=== PATIENT | female | born 1990 | race Caucasian/White ===

== ENCOUNTER → 2019-08-16 | Outpatient (REF) | payer MEDICAID ==
[2019-08-16 17:40] LABS: HEMATOCRIT 38.5 % (36.0-47.0); HEMOGLOBIN 12.7 g/dl (12.0-15.5); MEAN CORPUSCULAR HEMOGLOBIN 30.6 pg (27.0-33.0); MEAN CORPUSCULAR VOLUME 92.8 fl (80.0-96.0); PLATELET COUNT, AUTOMATED 273 10^3/uL (150-450); RED BLOOD COUNT 4.15 10^6/uL (4.00-5.40); WHITE BLOOD COUNT 9.1 10^3/uL (4.0-10.0)
[2019-08-16 21:08] LABS: CHLAMYDIA DNA AMPLIFICATION NEGATIVE (NEGATIVE); GC DNA AMPLIFICATION NEGATIVE (NEGATIVE)
[2019-08-17 10:31] LABS: HEPATITIS B SURFACE ANTIGEN NEGATIVE (NEGATIVE); HEPATITIS C VIRUS ABY INDEX < 0.0 INDEX (<0.8); HIV 1&2 SCREEN CENTAUR NEGATIVE (NEGATIVE); RUBELLA IgG QUALITATIVE IMMUNE (IMMUNE)
== END ==
LOC: M PLALAB 12:51
PROVIDERS: ATTEND Advanced Practice Midwife
DX: Z34.01 Encounter for supervision of normal first pregnancy, first trimester (principal)

== ENCOUNTER → 2019-10-13 | Outpatient (CLI) | payer MEDICAID ==
--- NOTE | 2019-10-13 11:08 | REP ---
OB ULTRASOUND: Real-time sonographic evaluation of the gravid uterus performed. Transabdominal and endovaginal technique is utilized. There is a single living intrauterine gestation. The estimated gestational age is 18 weeks, EDC 03/15/2020. Today's measurements indicate appropriate growth. Biometry and Growth: BPD 39 mm = 17 weeks 5 days, 41st percentile HC 145 mm = 17 weeks 5 days, 39th percentile AC 125 mm = 18 weeks 1 day, 52nd percentile FL 24 mm = 17 weeks 2 days, 27th percentile HC/AC ratio 1.16 within normal range of 1.07 to 1.26. Estimated weight 207 grams, 36th percentile. SEEN/GROSSLY UNREMARKABLE Lateral ventricles Yes Posterior fossa Yes Upper lip Yes Four-chamber heart Yes LVOT Yes RVOT Yes Stomach Yes Cord insertion Yes Three vessel cord Yes Kidneys Yes Bladder Yes Spine Yes Cervical length: Closed and measures 3.6 cm in length. heart rate: 143 beats per minute. position: Transverse with head toward the maternal right side. Placenta: Anterior and low lying, grade 1 with no previa or abruption. Tip of the placenta is 1.1 cm from the internal cervical os. Amniotic fluid: Within normal limits.
== END ==
LOC: M WHC 08:37
PROVIDERS: ATTEND Advanced Practice Midwife
DX: Z34.02 Encounter for supervision of normal first pregnancy, second trimester (principal)

== ENCOUNTER → 2020-01-17 | Outpatient (CLI) | payer MEDICAID ==
--- NOTE | 2020-03-08 08:56 | REP ---
LIMITED OBSTETRIC SONOGRAPHY HISTORY: Low lying placenta. Estimated date of delivery (ANNITA) 03/15/2020. Supervision of . FINDINGS: Limited obstetric sonography demonstrates a single living intrauterine gestation in a cephalic lie. A grade 2 anterior placenta is seen without evidence of previa or abruption. On transvaginal imaging closed cervical length is 2.7 cm. The placenta is not seen within 2 cm of the internal cervical os. heart rate is recorded at 132 beats per minute. Amniotic fluid is subjectively normal. EVER is normal at 14.2 cm. Umbilical cord appears to be around the neck at this juncture. MTDD
== END ==
LOC: M WHC 17:44
PROVIDERS: ATTEND Advanced Practice Midwife
DX: O44.43 Low lying placenta NOS or without hemorrhage, third trimester (principal)

== ENCOUNTER → 2020-02-14 | Outpatient (REF) | payer MEDICAID | LOC: M LAB REF 17:56 | PROVIDERS: ATTEND Advanced Practice Midwife | DX: Z34.03 Encounter for supervision of normal first pregnancy, third trimester (principal) ==

== ENCOUNTER → 2020-03-07 | Outpatient (CLI) | payer MEDICAID ==
--- NOTE | 2020-03-15 09:24 | REP ---
OB ULTRASOUND HISTORY: Uterine size discrepancy small for dates. TECHNIQUE: Real-time sonographic evaluation of gravid uterus is performed. Transabdominal technique is utilized. FINDINGS: There is a single living intrauterine . The estimated gestational age is reportedly 38 weeks 6 days, estimated date of confinement (EDC) 03/15/2020. Todays measurements indicate appropriate growth. BIOMETRIC MEASUREMENTS: BPD 91 mm 37 weeks 0 days 23rd percentile HC 327 mm 37 weeks 1 day 20th percentile AC 342 mm 38 weeks 1 day 38th percentile FL 67 mm 34 weeks 2 days Less than 5th percentile HC/AC ratio 0.96 Within Normal range 0.90-1.09 Estimated weight 3081 grams 44th percentile position cephalic. Placenta anterior and grade 2. There is no evidence of previa or abruption. Three-vessel cord is noted. heart rate is 125 beats per minute. Amniotic fluid within normal limits. Amniotic fluid index (EVER) 16.5 within normal range of 7.2-22.7. Cervical length is 3.0 cm. MTDD
== END ==
LOC: M WHC 10:15
PROVIDERS: ATTEND Obstetrics & Gynecology
DX: Z34.83 Encounter for supervision of other normal pregnancy, third trimester (principal); Z3A.38 38 weeks gestation of pregnancy

== ENCOUNTER → 2020-03-22 | Outpatient (REF) | payer MEDICAID | LOC: M PLALAB 13:11 | PROVIDERS: ATTEND Obstetrics & Gynecology | DX: Z34.91 Encounter for supervision of normal pregnancy, unspecified, first trimester (principal) ==

== ENCOUNTER 2020-03-25 23:37 | Inpatient (IN) | payer MEDICAID, SELFPAY ==
[~2020-03-25] VITALS: Ht 154.9 cm; Wt 70.0 kg
[2020-03-25 23:55] VITALS: BP 156/93
[2020-03-26] VITALS (53 sets, daily range): BP systolic 87–145; BP diastolic 50–80
[2020-03-26 00:42] LABS: HEMATOCRIT 38.2 % (36.0-47.0); HEMOGLOBIN 12.3 g/dl (12.0-15.5); MEAN CORPUSCULAR HEMOGLOBIN 28.6 pg (27.0-33.0); MEAN CORPUSCULAR HGB CONC 32.2 g/dl (32.0-36.5); MEAN CORPUSCULAR VOLUME 88.8 fl (80.0-96.0); PLATELET COUNT, AUTOMATED 266 10^3/uL (150-450); WHITE BLOOD COUNT 15.4 10^3/uL (4.0-10.0)
[2020-03-26] MEDS: ONDANSETRON 4MG/2ML VIAL IV SCH ×5 (00:43→19:04)
[2020-03-26] MEDS ORDERED: PROMETHAZINE INJ 25 MG/ML VIAL (J2550) IV ONE (00:45)
[2020-03-26] MEDS ORDERED: BUTORPHANOL 2 MG/ML INJ (J0595) IV ONE (00:45)
--- NOTE | 2020-03-26 00:46 | HPEPDOC ---
Obstetrical History & Physical General Date of Admission Mar 26, 2020 at 00:15 History of Present Illness 30 yo G1 female at 41 4/7 weeks gestation by LMP c/w 9 week ultrasound (EDC=03/15) presents with regular contractions for the past several hours. The contractions increased in intensity. Chief Complaint: Contractions, term Information Provided By: Patient Age: 30 : 1 Term: 0 Care Care: Good Care Dating Final EDC: Mar 15, 2020 Final EDC by: LMP, 1st trimester (US) LMP: Jun 09, 2019 Past Medical History Past Obstetrical History : Past Obstetrical History: Primgravida Past Medical History Surgical History: Denies/None Family History Significant Family History: No pertinent family hx Social History Marital Status: Family situation: Spouse/partner home Psychosocial History: No pertinent psych hx * Smoker: non-smoker Alcohol: Denies Drugs: denies Abuse Violence Screening Have you been hit/kicked/slapp: No Have you been sexually assault: No Allergies Coded Allergies: Dust (Verified Allergy, Unknown, 03/26/20) lactose (Verified Allergy, Unknown, 03/26/20) Physical Examination Physical Examination GENERAL: Alert and oriented times three. BREAST: . ABDOMEN: Gravid and non-tender to touch. FETUS: Is vertex (VTX) by sterile vaginal examination (SVE), fetus is vertex (VTX) by Roby. HEART RATE: Regular rate and rhythm. LUNGS: Clear to auscultation (CTA). EXTREMITIES: No edema. No clonus. Deep tendon reflexes (DTRs) + . Laboratory Data 24H LABS Laboratory Tests 2 03/25/20 23:52: Serology Scanned Report Hepatitis B Testing 03/26/20 00:30: CBC/BMP Pertinent Laboratoy Data Blood Type: O+ RBC Antibody Screen: Negative HIV: Negative Hepatitis B: Negative Hepatitis C: Negative Rapid Plasma Reagin: Immune Rubella: Nonreactive Chlamydia/Gonorrhea: Negative Group B Streptococcus: Negative Vaginal Examination Dilation: 3 cm Effacement: 70% Station: -2 Cervical Position: Posterior Presentation: Cephalic presentation Assessment Variability: Moderate Accelerations: Positive Decelerations: None Tocometer Contractions: Yes Frequency: regular, every 1-5 min. Duration: greater than 60 seconds Strength: palpated as moderate Assessment/Plan Assessment Pt is a 30-year-old (G)1 para (P)0 at 41+4 weeks by LMP c/w 9-week ultrasound presents to Labor and Delivery (L&D) in labor. Plan Admit and orient. Lacemaker and consent. Group B Streptococcus (GBS) negative Labs and intravenous (IV) per unit protocol. Counseled on Pitocin and induction of labor (IOL). Lactated Ringers (LR): Bolus mL, then at mL/hr. Anticipate [normal spontaneous delivery ()]. C-S as appropriate. DAVID MONZON MD Mar 26, 2020 00:45
[2020-03-26] MEDS ORDERED: LR 1,000 ML IV ONE (02:45)
[2020-03-26] MEDS ORDERED: FENTANYL 2MCG/ML ROPIVACAINE 0.2% IN 0.9% NACL 100ML IVBAG As Ordered ONE (08:28)
[2020-03-26] MEDS ORDERED: OXYTOCIN DRIP 30 UNITS in IV 1 EA IV SCH ×2 (08:45→19:06)
[2020-03-26] MEDS: LR 1,000 ML IV SCH ×3 (09:08→18:45)
--- NOTE | 2020-03-26 09:36 | IPNPDOC ---
Obstetrical Progress Note Date of Service Mar 26, 2020 Subjective Patient desires an epidural. Objective Vital Signs Date Time Temp Pulse Resp B/P (MAP) Pulse Ox O2 Delivery O2 Flow Rate FiO2 03/26/20 07:20 99.0 101 16 118/62 (80) 03/26/20 07:03 Room Air Assessment Heart Rate (FHR): 110 Variability: Moderate Accelerations: Positive Decelerations: None Heart Rate Tracing: Category I Tocometer Contractions: Yes Frequency: irregular Sterile Vaginal Examination Dilation: 4 cm Effacement (%): 90% Station: -1 Cervical Consistency: Soft Cervical Position: Anterior Postion/Presentation: Cephalic presentation Assessment and Plan Age: 30 : 1 Term: 0 Pre-term: 0 Abortions: 0 Livin EGA at Admission: 41.4 Status: Reassuring Group B Streptococcus: Negative Anticipate: Vaginal Delivery Additional Comments Patient having minimal contractions. Reviewed options to go home due to minimal cervical change or to augment her labor. She desires an unmedicated labor without augmentation. Patient reports she just wants to have this baby and wants an epidural so she can sleep. She accepts augmentation. IV Pitocin ordered. HYUN MARINO CNM Mar 26, 2020 09:36
[2020-03-26] MEDS ORDERED: ONDANSETRON 4MG/2ML VIAL IV PRN (10:45)
[2020-03-26] MEDS ORDERED: EPIDURAL/PCA KEYS XX PRN (10:45)
[2020-03-26] MEDS ORDERED: NALOXONE INJ 0.4MG/1ML VIAL (J2310 PER 1MG) IV PRN (10:45)
[2020-03-26] MEDS ORDERED: EPIDURAL COMMENT XX SCH (10:45)
[2020-03-26] MEDS ORDERED: ePHEDrine SULFATE 25 MG/5 ML(5MG/ML) SYRINGE IV PRN (10:45)
[2020-03-26] MEDS ORDERED: REFRIGERATOR IV KEYS XX PRN (10:45)
[2020-03-26] MEDS ORDERED: LACTATED RINGER'S 1000 ML IV PRN (10:45)
[2020-03-26] MEDS ORDERED: diphenhydrAMINE 50MG/ML VIAL (J1200) IV PRN (10:45)
[2020-03-26] MEDS ORDERED: FENTANYL/ROPIVACAINE/NACL BAG 100 ML EPIDURAL SCH (10:45)
--- NOTE | 2020-03-26 12:50 | IPNPDOC ---
Obstetrical Progress Note Date of Service Mar 26, 2020 Subjective Patient is comfortable with her epidural. Objective Vital Signs Date Time Temp Pulse Resp B/P (MAP) Pulse Ox O2 Delivery O2 Flow Rate FiO2 03/26/20 11:30 113 99/51 (67) 03/26/20 10:04 98.8 16 03/26/20 07:03 Room Air Assessment Heart Rate (FHR): 125 Variability: Moderate Accelerations: Positive Decelerations: None Heart Rate Tracing: Category I Tocometer Contractions: Yes Frequency: irregular Sterile Vaginal Examination Dilation: 5 cm (5 to 6 cm) Effacement (%): 100% Station: -1 Postion/Presentation: Cephalic presentation Assessment and Plan Status: Reassuring Anticipate: Vaginal Delivery Additional Comments Questionable SROM. IV Pitocin was stopped one hour ago due to a 4 minute decele ration that recovered. Lots of bloody show noted. IV Pitocin restarted as contractions are every 4 to 8 minutes. HYUN MARINO CNM Mar 26, 2020 12:50
[2020-03-26] MEDS ORDERED: DIBUCAINE 1% OINTMENT 30GM TOP PRN (19:15)
[2020-03-26] MEDS ORDERED: RHOGAM 300 MCG (1500 IU) INJ (J2790) IM SCH (19:15)
[2020-03-26] MEDS ORDERED: ACETAMINOPHEN 500 MG TAB PO PRN (19:15)
[2020-03-26] MEDS ORDERED: ANUSOL HC CREAM 30GM TOP PRN (19:15)
[2020-03-26] MEDS ORDERED: ACETAMINOPHEN TAB 650MG DOSE (2X325MG) PO PRN (19:15)
[2020-03-26] MEDS ORDERED: DOCUSATE SODIUM 100 MG CAP PO PRN (19:15)
[2020-03-26] MEDS ORDERED: METHYLERGONOVINE MALEATE 0.2 MG TAB PO PRN (19:15)
[2020-03-26] MEDS ORDERED: MEASLES,MUMPS,RUBELLA VACCINE INJ (MMR-II) (90707) SC SCH (19:15)
[2020-03-26] MEDS: IBUPROFEN 800 MG TAB PO PRN (19:20)
--- NOTE | 2020-03-26 20:32 | DNPDOC ---
[facility] Delivery Note Delivery Note DATE OF DELIVERY: 03/26/20 at 1830 PREDELIVERY DIAGNOSIS: 41-4/7 weeks' gestation and labor. POST DELIVERY DIAGNOSIS: Delivered. PROCEDURE: Spontaneous vaginal delivery. TAX ASSISTANT: Hyun Kasper CNM, CARMEN ANESTHESIA: epidural ESTIMATED BLOOD LOSS: 350 mL. FINDINGS: 6 pounds 13 ounces; 3100 grams; male , Score 8/9, nuchal cord times 3; meconium fluid. DELIVERY SUMMARY: Yissel is a 30-year-old female who is now a who presented to L&D in latent labor. Her labor was augmented with IV Pitocin after 8 hours of minimal cervical change. She requested an epidural for pain management. The patient progressed to fully dilated at 1715. She was artificially ruptured to a small amount of meconium fluid and pushed to a living male in the KARI position with restitution to ROT. A nuchal cord x3 was noted and reduced prior to the shoulder being delivered. The anterior shoulder delivered with ease and the corpus immediately followed. The baby was placed on the maternal abdomen active and crying with stimulation. The cord was clamped after pulsation ceased and cut by the father of the baby. A 3-vessel cord was noted. The placenta delivered at 1834 spontaneously and intact. Uterine hemostasis was achieved via rapid infusion of IV Pitocin and fundal massage. The vagina, cervix, and perineum were inspected and found to have a first degree perineal laceration that was repaired with a 3.[address]-1. Mom plans to breast feed her . They are undecided on his name. Both mom and baby are in stable condition. All counts of instruments and sponges are correct. HYUN KASPER CNM Mar 26, 2020 20:32
[2020-03-26] MEDS ORDERED: CARBOPROST TROMETHAMINE 250 MCG/ML AMP As Ordered ONE (23:40)
[2020-03-27] MEDS ORDERED: OXYTOCIN INJ 10 UNITS/ML VIAL (J2590) IV STA (00:01)
[2020-03-27] MEDS ORDERED: METHYLERGONOVINE MALEATE 0.2 MG/ML VIAL (J2210) IM ONE (00:15)
[2020-03-27] MEDS ORDERED: AMPICILLIN SOD/SULBACTAM SOD 3 GM in D5W MINI-BAG PLUS 100 ML IV ONE (00:15)
[2020-03-27] MEDS ORDERED: PERCOCET 5MG/325MG TAB PO ONE (00:15)
[2020-03-27] MEDS ORDERED: CARBOPROST TROMETHAMINE 250 MCG/ML AMP IM ONE (00:15)
[2020-03-27] MEDS ORDERED: LOPERAMIDE 2 MG CAPLET PO PRN (00:15)
[2020-03-27] MEDS: LOPERAMIDE 2 MG CAPLET PO ONE ×2 (00:26→00:30)
[2020-03-27] MEDS ORDERED: UNASYN 3 GM VIAL As Ordered ONE (00:26)
[2020-03-27 00:28] VITALS: BP 119/77
[2020-03-27] MEDS ORDERED: OXYTOCIN DRIP 30 UNITS in IV 1 EA IV SCH (00:30)
[2020-03-27 06:02] VITALS: BP 105/57
[2020-03-27 06:05] LABS: HEMATOCRIT 26.8 % (36.0-47.0); HEMOGLOBIN 8.7 g/dl (12.0-15.5); MEAN CORPUSCULAR HEMOGLOBIN 29.2 pg (27.0-33.0); MEAN CORPUSCULAR HGB CONC 32.5 g/dl (32.0-36.5); MEAN CORPUSCULAR VOLUME 89.9 fl (80.0-96.0); PLATELET COUNT, AUTOMATED 191 10^3/uL (150-450); RED BLOOD COUNT 2.98 10^6/uL (4.00-5.40); WHITE BLOOD COUNT 18.1 10^3/uL (4.0-10.0)
[2020-03-27] MEDS: FERROUS GLUCONATE 324 MG TAB PO SCH ×2 (08:32→21:44)
[2020-03-27] MEDS: IBUPROFEN 600MG TAB PO PRN (08:32)
[2020-03-27] MEDS: PRENATAL VITAMINS CHEWABLE TABLET PO SCH (08:32)
--- NOTE | 2020-03-27 12:05 | IPNPDOC ---
Progress Note Date of Service: Mar 27, 2020 Day#: 1 Progress Note SUBJECT: Yissel is now a who had an uncomplicated vaginal delivery with a 1st degree vaginal repair. Last night she had a hemorrhage related to uterine atony from a full bladder. She received Methergine, Hemabate and IV Pitocin. She has been ambulating, voiding spontaneously without issue and tolerating regular diet. Breast feeding without issue. She denies any dizziness currently or when ambulating. OBJECTIVE: VITAL SIGNS: Within normal limits, afebrile. Alert and oriented times three. Breath sounds clear to auscultation. Heart rate: Regular rate Abdomen: Fundus firm at U-2. Soft, NTTP. Minimal lochia. ASSESSMENT: Day 1 , post hemorrhage 1,000 cc PLAN: 1.Continue supportive nursing care. 2. Continue with iron supplements and pain management. 3. Anticipate discharge tomorrow if patient continues to do well. VS, I&O, 24H, Fishbone Vital Signs/I&O Vital Signs Date Time Temp Pulse Resp B/P (MAP) Pulse Ox O2 Delivery O2 Flow Rate FiO2 03/27/20 06:02 98.5 79 18 105/57 (73) 03/27/20 00:28 97 03/26/20 07:03 Room Air I&O- Last 24 Hours up to 6 AM 03/27/20 06:00 Intake Total 5018 ml Output Total 3700 ml Balance 1318 ml Laboratory Data 24H LABS Laboratory Tests 2 03/27/20 05:52: Nucleated Red Blood Cells % (auto) 0.0 CBC/BMP Laboratory Tests 03/27/20 05:52 Item Value Date Time White Blood Count 15.4 10^3/uL H 03/26/20 0030 Red Blood Count 4.30 10^6/uL 03/26/20 0030 Hemoglobin 12.3 g/dl 03/26/20 0030 Hematocrit 38.2 % 03/26/20 0030 Mean Corpuscular Volume 88.8 fl 03/26/20 0030 Mean Corpuscular Hemoglobin 28.6 pg 03/26/20 0030 Mean Corpuscular Hemoglobin Concent 32.2 g/dl 03/26/20 0030 Red Cell Distribution Width 13.7 % 03/26/20 003 Platelet Count 266 10^3/uL 03/26/20 0030 Item Value Date Time White Blood Count 18.1 10^3/uL H 03/27/20 0552 Red Blood Count 2.98 10^6/uL L 03/27/2052 Hemoglobin 8.7 g/dl L # 03/27/2052 Hematocrit 26.8 % L 03/27/2052 Mean Corpuscular Volume 89.9 fl 03/27/2052 Mean Corpuscular Hemoglobin 29.2 pg 03/27/20551 Mean Corpuscular Hemoglobin Concent 32.5 g/dl 03/27/2052 Red Cell Distribution Width 13.9 % 03/27/2052 Platelet Count 191 10^3/uL 03/27/20 0552 HYUN MARINO CNM Mar 27, 2020 12:05
[2020-03-27] MEDS: IBUPROFEN 800 MG TAB PO PRN (15:51)
[2020-03-27 18:08] VITALS: BP 101/52
[2020-03-28 06:00] VITALS: BP 108/61
[2020-03-28] MEDS: IBUPROFEN 600MG TAB PO PRN (08:13)
[2020-03-28] MEDS: PRENATAL VITAMINS CHEWABLE TABLET PO SCH (08:13)
[2020-03-28] MEDS: FERROUS GLUCONATE 324 MG TAB PO SCH (08:13)
== END 2020-03-28 12:05 | disposition home or self-care (01) | DRG 560 ==
LOC: M LDO 23:37 → M LDI 03-26 00:15 → M OBS 03-26 21:30
PROVIDERS: ADMIT Specialist; ATTEND Specialist
PROC: 10E0XZZ Delivery of Products of Conception, External Approach (ICD-10-PCS; principal; 2020-03-26)
PROC: 0HQ9XZZ Repair Perineum Skin, External Approach (ICD-10-PCS; 2020-03-26)
PROC: 10907ZC Drainage of Amniotic Fluid, Therapeutic from Products of Conception, Via Natural or Artificial Opening (ICD-10-PCS; 2020-03-26)
DX: O48.0 Post-term pregnancy (principal); O77.0 Labor and delivery complicated by meconium in amniotic fluid; Z37.0 Single live birth; Z3A.41 41 weeks gestation of pregnancy; O69.81X0 Labor and delivery complicated by cord around neck, without compression, not applicable or unspecified; O70.0 First degree perineal laceration during delivery

== ENCOUNTER → 2020-07-11 | Outpatient (CLI) | payer MEDICAID | LOC: M PLALAB 10:32 | PROVIDERS: ATTEND Advanced Practice Midwife | DX: Z12.4 Encounter for screening for malignant neoplasm of cervix (principal) ==

== ENCOUNTER → 2021-04-09 | Outpatient (CLI) | payer BC ==
[2021-04-09 13:43] LABS: BASO % 0.4 % (0.0-1.0); EOS % 0.4 % (0.0-3.0); HEMATOCRIT 40.9 % (36.0-47.0); HEMOGLOBIN 13.4 g/dl (12.0-15.5); LYMPH # 1.9 10^3/uL (1.5-5.0); LYMPH % 24.1 % (24.0-44.0); MEAN CORPUSCULAR HEMOGLOBIN 30.3 pg (27.0-33.0); MEAN CORPUSCULAR HGB CONC 32.8 g/dl (32.0-36.5); MEAN CORPUSCULAR VOLUME 92.5 fl (80.0-96.0); MONO # 0.5 10^3/uL (0.0-0.8); MONO % 6.1 % (2.0-8.0); NEUTROPHILS # 5.5 10^3/uL (1.5-8.5); NEUTROPHILS % 68.6 % (36.0-66.0); PLATELET COUNT, AUTOMATED 246 10^3/uL (150-450); RED BLOOD COUNT 4.42 10^6/uL (4.00-5.40); WHITE BLOOD COUNT 8.1 10^3/uL (4.0-10.0)
[2021-04-09 15:11] LABS: GC DNA AMPLIFICATION NEGATIVE (NEGATIVE)
[2021-04-09 15:51] LABS: HEPATITIS C VIRUS ABY INDEX < 0.0 INDEX (<0.8); HIV 1&2 SCREEN CENTAUR NEGATIVE (NEGATIVE)
== END ==
LOC: M PLALAB 09:06
PROVIDERS: ATTEND Advanced Practice Midwife
DX: Z34.81 Encounter for supervision of other normal pregnancy, first trimester (principal)

== ENCOUNTER → 2021-06-03 | Outpatient (CLI) | payer BC ==
[~2021-06-03] MED LIST: DOXY1TAB59
== END ==
LOC: M WHC 14:24
PROVIDERS: ATTEND Specialist
DX: Z34.82 Encounter for supervision of other normal pregnancy, second trimester (principal); Z3A.20 20 weeks gestation of pregnancy

== ENCOUNTER 2021-06-11 12:27 | Emergency (ER) | payer OTHER, BC ==
[~2021-06-11] VITALS: Ht 157.5 cm; Wt 68.2 kg
[2021-06-11] MEDS ORDERED: DOXY1TAB59 (12:55)
[2021-06-11 15:05] VITALS: BP 131/64
== END 2021-06-11 15:07 | disposition home or self-care (01) ==
LOC: M ED 12:27
DX: O26.892 Other specified pregnancy related conditions, second trimester (principal); R10.30 Lower abdominal pain, unspecified; V40.0XXA Car driver injured in collision with pedestrian or animal in nontraffic accident, initial encounter; Z91.048 Other nonmedicinal substance allergy status; Z91.011 Allergy to milk products; Z3A.21 21 weeks gestation of pregnancy; Y92.9 Unspecified place or not applicable; Y93.9 Activity, unspecified; Y99.9 Unspecified external cause status

== ENCOUNTER → 2021-06-18 | Outpatient (CLI) | payer BC ==
--- NOTE | 2021-06-18 21:16 | REP ---
INDICATION: F/U COMPARISON: 06/03/2021 TECHNIQUE: Transabdominal obstetrical ultrasound with color Doppler evaluation. FINDINGS: Examination demonstrates a single live intrauterine in breech presentation. motion is identified by technologist. Placenta is noted posterior and grade 1 and low lying measuring approximately 19 mm from the closed internal os. Amniotic fluid volume is normal. Cervix measures 4.1 cm in length and appears closed.. Selected gestational age: 22 weeks 2 days with ANNITA 10/20/2021. Gestational age by current measurements 22 weeks 3 days with ANNITA 10/19/2021. FHR equals 144 beats per minute. Estimated weight 527 grams (65thpercentile). Anatomical assessment demonstrates findings concerning for cleft lip and possible cleft palate. IMPRESSION: 1. Findings suspicious for cleft lip/cleft palate. 2. Posterior grade 1 low lying placenta 19 mm from the closed internal os. <Electronically signed by Fernie Farias > 06/18/21 [id number]
== END ==
LOC: M WHC 12:20
PROVIDERS: ATTEND Specialist
DX: Z34.82 Encounter for supervision of other normal pregnancy, second trimester (principal)

== ENCOUNTER → 2021-07-24 | Outpatient (CLI) | payer BC ==
[2021-07-24 15:51] LABS: HEMATOCRIT 36.4 % (36.0-47.0); HEMOGLOBIN 11.7 g/dl (12.0-15.5); MEAN CORPUSCULAR HEMOGLOBIN 30.7 pg (27.0-33.0); MEAN CORPUSCULAR HGB CONC 32.1 g/dl (32.0-36.5); MEAN CORPUSCULAR VOLUME 95.5 fl (80.0-96.0); PLATELET COUNT, AUTOMATED 282 10^3/uL (150-450); RED BLOOD COUNT 3.81 10^6/uL (4.00-5.40); WHITE BLOOD COUNT 10.7 10^3/uL (4.0-10.0)
== END ==
LOC: M PLALAB 11:21
PROVIDERS: ATTEND Advanced Practice Midwife
DX: O44.42 Low lying placenta NOS or without hemorrhage, second trimester (principal)

== ENCOUNTER 2021-09-12 15:24 | Emergency (ER) | payer BC ==
[~2021-09-12] VITALS: Ht 154.9 cm; Wt 75.4 kg
[2021-09-12 15:25] VITALS: BP 127/73
[2021-09-12] MEDS ORDERED: ROBI1CAP PO (16:40)
[2021-09-12 19:22] LABS: BASO % 0.3 % (0.0-1.0); EOS # 0.2 10^3/uL (0.0-0.5); EOS % 1.9 % (0.0-3.0); HEMATOCRIT 35.3 % (36.0-47.0); HEMOGLOBIN 11.5 g/dl (12.0-15.5); LYMPH # 2.2 10^3/uL (1.5-5.0); LYMPH % 19.7 % (24.0-44.0); MEAN CORPUSCULAR HEMOGLOBIN 29.3 pg (27.0-33.0); MEAN CORPUSCULAR HGB CONC 32.6 g/dl (32.0-36.5); MEAN CORPUSCULAR VOLUME 90.1 fl (80.0-96.0); MONO # 0.9 10^3/uL (0.0-0.8); MONO % 7.6 % (2.0-8.0); NEUTROPHILS # 7.7 10^3/uL (1.5-8.5); NEUTROPHILS % 69.1 % (36.0-66.0); PLATELET COUNT, AUTOMATED 255 10^3/uL (150-450); RED BLOOD COUNT 3.92 10^6/uL (4.00-5.40); WHITE BLOOD COUNT 11.2 10^3/uL (4.0-10.0)
[2021-09-12 19:40] LABS: ALBUMIN 2.8 GM/DL (3.2-5.2); ALT/SGPT 22 U/L (12-78); BILIRUBIN,DIRECT 0.1 MG/DL (0.0-0.2); BILIRUBIN,TOTAL 0.5 MG/DL (0.2-1.0); BLOOD UREA NITROGEN 6 MG/DL (7-18); CALCIUM LEVEL 8.9 MG/DL (8.5-10.1); CARBON DIOXIDE LEVEL 24 MEQ/L (21-32); CHLORIDE LEVEL 110 MEQ/L (98-107); CREATININE FOR GFR 0.47 MG/DL (0.55-1.30); FERRITIN 6 NG/ML (8-252); GLOMERULAR FILTRATION RATE > 60.0 (>60); GLUCOSE, FASTING 82 MG/DL (70-100); POTASSIUM SERUM 3.7 MEQ/L (3.5-5.1); SODIUM LEVEL 142 MEQ/L (136-145); TOTAL PROTEIN 6.3 GM/DL (6.4-8.2)
[2021-09-12] MEDS ORDERED: diphenhydrAMINE 50MG/ML VIAL (J1200) IV PRN (20:20)
[2021-09-12] MEDS ORDERED: ALBUTEROL 90 MCG/ACT 8GM HFA INHALER INH PRN (20:20)
[2021-09-12] MEDS ORDERED: EPINEPHrine INJ 1 MG/ML 1ML AMP IM PRN (20:20)
[2021-09-12] MEDS ORDERED: ACETAMINOPHEN TAB 650MG DOSE (2X325MG) PO PRN (20:20)
[2021-09-12] MEDS ORDERED: ALBUTEROL SULFATE 2.5 MG/0.5 ML INH NEB SOLN INH PRN (20:20)
[2021-09-12] MEDS ORDERED: NS 1,000 ML IV SCH (21:00)
[2021-09-12] MEDS ORDERED: BEBTELOVIMAB 175MG 2ML VIAL (EUA) IV ONE (21:00)
== END 2021-09-12 22:02 | disposition home or self-care (01) ==
LOC: M ED 15:24
DX: O98.512 Other viral diseases complicating pregnancy, second trimester (principal); U07.1 COVID-19; Z3A.20 20 weeks gestation of pregnancy; Z91.011 Allergy to milk products

== ENCOUNTER → 2021-09-23 | Outpatient (CLI) | payer BC ==
[~2021-09-23] MED LIST changes: +ROBI1CAP PO
== END ==
LOC: M WHC 09:56
PROVIDERS: ATTEND Advanced Practice Midwife
DX: Z36.3 Encounter for antenatal screening for malformations (principal); O35.8XX0 Maternal care for other (suspected) fetal abnormality and damage, not applicable or unspecified; Z3A.36 36 weeks gestation of pregnancy

== ENCOUNTER → 2021-09-26 | Outpatient (REF) | payer BC | LOC: M SFHCWAGY 16:44 | PROVIDERS: ATTEND Obstetrics & Gynecology | DX: O35.8XX0 Maternal care for other (suspected) fetal abnormality and damage, not applicable or unspecified (principal) ==

== ENCOUNTER → 2021-10-09 | Outpatient (CLI) | payer BC ==
[~2021-10-09] MED LIST changes: +MULTTAB20 PO
== END ==
LOC: M LABSMTC 09:41
PROVIDERS: ATTEND Anesthesiology
DX: Z01.812 Encounter for preprocedural laboratory examination (principal); Z20.822 Contact with and (suspected) exposure to COVID-19

== ENCOUNTER 2021-10-14 07:10 | Inpatient (IN) | payer BC ==
[~2021-10-14] VITALS: Ht 154.9 cm; Wt 77.1 kg
[2021-10-14] VITALS (9 sets, daily range): BP systolic 101–128; BP diastolic 58–75
[2021-10-14] MEDS ORDERED: UNIS25TA3 PO (07:30)
[2021-10-14] MEDS ORDERED: ACET500P3 PO (07:30)
[2021-10-14] MEDS ORDERED: HOME MED LIST COMPLETE! XX SCH (07:35)
[2021-10-14] MEDS ORDERED: LACTATED RINGER'S 1000 ML IV STA (07:47)
[2021-10-14] MEDS ORDERED: ceFAZolin SOD 2 GM in IV 1 EA IV ONE (07:50)
[2021-10-14] MEDS ORDERED: LR 1,000 ML IV SCH (07:50)
[2021-10-14] MEDS ORDERED: BICITRA 30ML SOLN UDC PO ONE (07:50)
[2021-10-14 08:35] LABS: HEMATOCRIT 31.3 % (36.0-47.0); HEMOGLOBIN 9.8 g/dl (12.0-15.5); MEAN CORPUSCULAR HGB CONC 31.3 g/dl (32.0-36.5); MEAN CORPUSCULAR VOLUME 89.4 fl (80.0-96.0); PLATELET COUNT, AUTOMATED 261 10^3/uL (150-450); WHITE BLOOD COUNT 9.1 10^3/uL (4.0-10.0)
[2021-10-14] MEDS: PRENATAL VITAMINS CHEWABLE TABLET PO SCH (09:00)
[2021-10-14] MEDS: DOCUSATE SODIUM 100MG CAPSULE PO SCH ×2 (09:00→22:27)
[2021-10-14] MEDS ORDERED: ePHEDrine SULFATE 25 MG/5 ML(5MG/ML) SYRINGE As Ordered ONE (09:54)
[2021-10-14] MEDS ORDERED: KETOROLAC 60MG 2ML VIAL As Ordered ONE (09:54)
[2021-10-14] MEDS ORDERED: MORPHINE PRES-FREE INJ 10 MG/10 ML VIAL As Ordered ONE (09:54)
[2021-10-14] MEDS ORDERED: ONDANSETRON 4MG/2ML VIAL As Ordered ONE (09:54)
[2021-10-14] MEDS ORDERED: ACETAMINOPHEN 1000MG 100ML IV BTL (OFIRMEV) (J0131 PER 10MG) As Ordered ONE (09:55)
[2021-10-14] MEDS ORDERED: diphenhydrAMINE 50MG/ML VIAL (J1200) IV PRN (10:00)
[2021-10-14] MEDS ORDERED: ONDANSETRON 4MG/2ML VIAL IV PRN ×3 (10:00→11:25)
[2021-10-14] MEDS ORDERED: METOCLOPRAMIDE INJ 10MG/2ML VIAL (J2765 PER 1) IV PRN (10:00)
[2021-10-14] MEDS ORDERED: NALOXONE INJ 0.4MG/1ML VIAL (J2310 PER 1MG) IV PRN ×2 (10:00)
[2021-10-14] MEDS ORDERED: OXYTOCIN 30 UNITS IN 0.9% NaCl 500ML IV BAG (J2590) As Ordered ONE ×2 (10:15→11:09)
[2021-10-14] MEDS ORDERED: RHOGAM 300 MCG (1500 IU) INJ (J2790) IM SCH (10:15)
[2021-10-14] MEDS ORDERED: OXYTOCIN DRIP 30 UNITS in IV 1 EA IV SCH (10:15)
[2021-10-14] MEDS ORDERED: MOM 30ML SUSPENSION UDC PO PRN (10:15)
[2021-10-14] MEDS ORDERED: SIMETHICONE 80MG CHEW TAB PO PRN (10:15)
[2021-10-14] MEDS ORDERED: MEASLES,MUMPS,RUBELLA VACCINE INJ (MMR-II) (90707) SC SCH (10:15)
[2021-10-14] MEDS ORDERED: fentaNYL 100 MCG/2 ML INJECTION As Ordered ONE (10:28)
[2021-10-14] MEDS ORDERED: propofoL 200 MG/20 ML VIAL As Ordered ONE (10:41)
[2021-10-14] MEDS ORDERED: LIDOCAINE 2% 100MG/5ML SDV (FOR ANES.) As Ordered ONE (10:41)
[2021-10-14] MEDS ORDERED: MEPERIDINE INJ 25 MG/ML VIAL (J2175) IV PRN (11:25)
[2021-10-14] MEDS ORDERED: HYDROMORPHONE HCL 0.5 MG/ 0.5 ML SYRINGE (J1170 PER 1) IV PRN (11:25)
[2021-10-14] MEDS ORDERED: fentaNYL 100 MCG/2 ML INJECTION IV PRN (11:25)
[2021-10-14] MEDS ORDERED: oxyCODONE 5MG TAB PO PRN (11:25)
[2021-10-14] MEDS: LR 1,000 ML IV SCH ×2 (16:11→18:15)
[2021-10-14] MEDS: KETOROLAC 30 MG/ML 1ML VIAL IV SCH ×2 (16:21→22:27)
[2021-10-15] VITALS (7 sets, daily range): BP systolic 93–113; BP diastolic 52–61
[2021-10-15] MEDS: KETOROLAC 30 MG/ML 1ML VIAL IV SCH (04:23)
[2021-10-15 08:25] LABS: HEMATOCRIT 27.1 % (36.0-47.0); HEMOGLOBIN 8.6 g/dl (12.0-15.5); MEAN CORPUSCULAR HEMOGLOBIN 28.8 pg (27.0-33.0); MEAN CORPUSCULAR HGB CONC 31.7 g/dl (32.0-36.5); MEAN CORPUSCULAR VOLUME 90.6 fl (80.0-96.0); PLATELET COUNT, AUTOMATED 216 10^3/uL (150-450); RED BLOOD COUNT 2.99 10^6/uL (4.00-5.40); WHITE BLOOD COUNT 9.3 10^3/uL (4.0-10.0)
[2021-10-15] MEDS: DOCUSATE SODIUM 100MG CAPSULE PO SCH ×2 (10:04→22:19)
[2021-10-15] MEDS: PRENATAL VITAMINS CHEWABLE TABLET PO SCH (10:04)
[2021-10-15] MEDS: PERCOCET 5MG/325MG TAB PO PRN ×3 (10:06→23:27)
[2021-10-15] MEDS: IBUPROFEN 800 MG TAB PO SCH ×2 (12:49→22:19)
[2021-10-15] MEDS ORDERED: PERCOCET PO (13:27)
[2021-10-15] MEDS ORDERED: IBUP80TA PO (13:27)
[2021-10-16 02:00] VITALS: BP 101/62
[2021-10-16] MEDS: IBUPROFEN 800 MG TAB PO SCH (05:09)
[2021-10-16 06:00] VITALS: BP 109/64
[2021-10-16] MEDS: DOCUSATE SODIUM 100MG CAPSULE PO SCH (08:42)
[2021-10-16] MEDS: PERCOCET 5MG/325MG TAB PO PRN (08:42)
[2021-10-16] MEDS: PRENATAL VITAMINS CHEWABLE TABLET PO SCH (08:42)
[2021-10-16 10:00] VITALS: BP 110/58
== END 2021-10-16 12:30 | disposition home or self-care (01) | DRG 540 ==
LOC: M LDI 07:10 → M OBS 13:24
PROVIDERS: ADMIT Obstetrics & Gynecology; ATTEND Obstetrics & Gynecology
PROC: 10D00Z1 Extraction of Products of Conception, Low, Open Approach (ICD-10-PCS; principal; 2021-10-14 09:30)
DX: O32.1XX0 Maternal care for breech presentation, not applicable or unspecified (principal); Z37.0 Single live birth; Z3A.39 39 weeks gestation of pregnancy